=== PATIENT | female | born 1985 | race African-American/Black ===

== ENCOUNTER 2021-05-09 22:10 | Inpatient (IN) | payer OTHER ==
[2021-05-10] MEDS ORDERED: AMPICILLIN - 2 GM in SODIUM CHLORIDE 100 ML IVPB ONE ×2
[2021-05-10 00:06] VITALS: BMI 43.3
[2021-05-10 00:10] LABS: URINE BARBITURATES NEGATIVE (NEGATIVE)
[2021-05-10 00:11] LABS: METHADONE, UR NEGATIVE (NEGATIVE); OPIATES, URI NEGATIVE (NEGATIVE); PHENCYCLIDINE,URINE NEGATIVE (NEGATIVE); URINE BENZODIAZEPINES NEGATIVE (NEGATIVE)
[2021-05-10 00:14] LABS: COCAINE, UR NEGATIVE (NEGATIVE); URINE AMPHETAMINES NEGATIVE (NEGATIVE)
[2021-05-10] MEDS ORDERED: AMPICILLIN SODIUM 2 GM VIAL ONE (00:27)
[2021-05-10 00:48] LABS: EPI CELLS 8 /uL (0-25.1); HYALINE CASTS 1 /uL (0-3.1); PH,URINE 6.5 (5.0-8.0); URINE APPEARANCE CLEAR; URINE BACTERIA 7 /uL (0-1359); URINE BILIRUBIN NEGATIVE (NEGATIVE); URINE COLOR YELLOW; URINE GLUCOSE (UA) NEGATIVE (NEGATIVE); URINE KETONE NEGATIVE (NEGATIVE); URINE LEUK ESTERASE TRACE (NEGATIVE); URINE NITRITE NEGATIVE (NEGATIVE); URINE PROTEIN NEGATIVE (NEGATIVE); URINE RBC 15 /uL (0-23.9); URINE WBC 11 /uL (0-25.8)
[2021-05-10 01:09] LABS: BASO % 0.1 % (0-2.0); EOS % 1.2 % (0-4.5); HEMATOCRIT 34.2 % (32.4-45.2); HEMOGLOBIN 11.5 GM/dL (10.7-15.3); LYMPH % 18.2 % (8-40); MCH 29.1 pg (25.7-33.7); MCHC 33.8 g/dl (32.0-36.0); MEAN CELL VOLUME 86.2 fl (80-96); MEAN PLT VOLUME 9.2 fl (7.5-11.1); MONO % 5.2 % (3.8-10.2); NEUT % 75.3 % (42.8-82.8); PLATELET COUNT 230 10^3/uL (134-434); RBC 3.96 M/mm3 (3.60-5.2); RDW 14.9 % (11.6-15.6); WHITE BLOOD COUNT 7.6 K/mm3 (4.0-10.0)
[2021-05-10 01:17] LABS: INR 0.9 (0.83-1.09); PROTHROMBIN TIME (PATIENT) 11.1 SEC (9.7-13.0)
[2021-05-10 01:20] LABS: ACTIVATED PTT 28.1 SECONDS (25.2-36.5)
[2021-05-10 01:27] LABS: CALCIUM 8.8 mg/dL (8.5-10.1)
[2021-05-10 01:28] LABS: ALBUMIN 2.4 g/dl (3.4-5.0); BLOOD UREA NITROGEN 5.7 mg/dL (7-18)
[2021-05-10 01:31] LABS: CREATININE 0.6 mg/dL (0.55-1.3)
[2021-05-10 01:32] LABS: BILIRUBIN,TOTAL 0.3 mg/dL (0.2-1)
[2021-05-10 01:33] LABS: TOT PROT 6.9 g/dl (6.4-8.2)
[2021-05-10 01:55] LABS: SYPHILIS W/ RPR CONF NON-REACTIVE (NONREACTIVE)
[2021-05-10 02:30] LABS: HIV INTERPRETATION NEGATIVE (NEGATIVE)
[2021-05-10] MEDS: AMPICILLIN - 1 GM in SODIUM CHLORIDE 100 ML IVPB SCH ×6 (04:00→20:17)
[2021-05-10] MEDS ORDERED: AMPICILLIN SODIUM 1 GM VIAL ONE ×4 (04:35→15:41)
[2021-05-10] MEDS: DEXTROSE 5%-LACTATED RINGERS 1,000 ML IV SCH ×2 (05:45)
[2021-05-10] MEDS ORDERED: OXYTOCIN 30 UNITS in 0.9% NS 30 UNIT/500 ML INFUS.BAG IVPB ONE (09:39)
[2021-05-10] MEDS ORDERED: BUTORPHANOL TARTRATE 1 MG/ML VIAL IVPUSH PRN (09:57)
[2021-05-10] MEDS ORDERED: PROMETHAZINE HCL 25 MG/1 ML VIAL IVPB ONE (09:57)
[2021-05-10] MEDS ORDERED: OXYTOCIN 30 UNITS in 0.9% NS 30 UNIT/500 ML INFUS.BAG IVPB SCH (10:00)
[2021-05-10] MEDS ORDERED: PCA PUMP NR ONE (13:13)
[2021-05-10] MEDS ORDERED: NALOXONE HCL 0.4 MG/ML VIAL IVPUSH PRN (13:25)
[2021-05-10] MEDS ORDERED: FENTANYL/BUPIVACAINE/NS/PF - PCEA - 50 ML DISP.SYRIN EP ONE (13:27)
[2021-05-10] MEDS ORDERED: BUPIVACAINE HCL/PF 0.25% (2.5MG/ML) 10 ML VIAL ONE ×3 (13:29→14:43)
[2021-05-10] MEDS: FENTANYL/BUPIVACAINE/NS/PF - PCEA - 50 ML DISP.SYRIN EP SCH ×2 (13:55→14:45)
[2021-05-10] MEDS ORDERED: ELECTROLYTE-148 SOLN 1,000 ML IV SCH (14:30)
[2021-05-10] MEDS ORDERED: LIDOCAINE HCL 1% PRESERVATIVE FREE - 30ML VIAL ONE (15:22)
[2021-05-10] MEDS ORDERED: OXYTOCIN 20 UNITS in 0.9% NS 20 UNIT/1,000 ML INFUS.BAG IV ONE (15:23)
[2021-05-10] MEDS ORDERED: METHYLERGONOVINE MALEATE 0.2 MG/1 ML AMP IM PRN (16:22)
[2021-05-10] MEDS ORDERED: BENZOCAINE 28 GM HEMORRHOIDAL OINTMENT TP PRN (16:22)
[2021-05-10] MEDS ORDERED: ACETAMINOPHEN 325 MG TABLET (FP) PO PRN (16:22)
[2021-05-10] MEDS ORDERED: BENZOCAINE 20% 57 GM BOTTLE TP PRN (16:22)
[2021-05-10] MEDS ORDERED: BISACODYL 10 MG SUPP.RECT RC PRN (16:22)
[2021-05-10] MEDS ORDERED: WITCH HAZEL 50% (TUCKS) 40 PAD/JAR PAD TP PRN (16:22)
[2021-05-10] MEDS ORDERED: OXYTOCIN 20 UNITS in 0.9% NS 20 UNIT/1,000 ML INFUS.BAG IV SCH (16:30)
[2021-05-10 16:40] LABS: CORD BASE EXCESS -7.4 mmol/L (0-2); CORD HCO3 21.9 mmHg (20-29); CORD PCO2 59.8 mmHg (30-78); CORD pH 7.181 (7.14-7.44)
[2021-05-10 16:41] LABS: CORD HCO3 22.3 mmHg (20-29); CORD pH 7.114 (7.14-7.44)
[2021-05-10] MEDS: FERROUS SO4 325 MG TABLET (FP) PO SCH (21:59)
[2021-05-10] MEDS: IBUPROFEN 600 MG TABLET (FP) PO PRN (22:59)
[2021-05-11 08:05] LABS: BASO % 0.2 % (0-2.0); EOS % 0.9 % (0-4.5); HEMATOCRIT 33.4 % (32.4-45.2); HEMOGLOBIN 11.3 GM/dL (10.7-15.3); LYMPH % 15.8 % (8-40); MCH 29.6 pg (25.7-33.7); MCHC 33.9 g/dl (32.0-36.0); MEAN CELL VOLUME 87.3 fl (80-96); MEAN PLT VOLUME 9.5 fl (7.5-11.1); MONO % 5.6 % (3.8-10.2); NEUT % 77.5 % (42.8-82.8); PLATELET COUNT 207 10^3/uL (134-434); RBC 3.83 M/mm3 (3.60-5.2); RDW 15.4 % (11.6-15.6); WHITE BLOOD COUNT 8.9 K/mm3 (4.0-10.0)
[2021-05-11] MEDS: IBUPROFEN 600 MG TABLET (FP) PO PRN ×2 (09:07→15:56)
[2021-05-11] MEDS: FERROUS SO4 325 MG TABLET (FP) PO SCH ×2 (09:09→21:13)
[2021-05-11] MEDS: PRENATAL VITAMINS W/ FOLIC ACID TABLET (FP) PO SCH (09:09)
[2021-05-11] MEDS ORDERED: SENNOSIDES/DOCUSATE COMBO (SENNA PLUS) TABLET (UD) PO PRN (22:00)
[2021-05-12] MEDS: PRENATAL VITAMINS W/ FOLIC ACID TABLET (FP) PO SCH (09:09)
[2021-05-12] MEDS: FERROUS SO4 325 MG TABLET (FP) PO SCH (09:09)
[2021-05-12 10:02] VITALS: BP 111/78; PULSE 84; TEMP 98
[2021-05-12 10:30] LABS: POC NITRAZINE POS
== END 2021-05-12 11:45 | disposition home or self-care (01) | DRG 560 ==
LOC: JDEL 22:10 → JLDR 23:05 → J3W 05-10 19:38
PROVIDERS: ADMIT Obstetrics & Gynecology; ATTEND Obstetrics & Gynecology
PROC: 10E0XZZ Delivery of Products of Conception, External Approach (ICD-10-PCS; principal; 2021-05-10)
DX: O42.02 Full-term premature rupture of membranes, onset of labor within 24 hours of rupture (principal); O34.219 Maternal care for unspecified type scar from previous cesarean delivery; Z37.0 Single live birth; O99.214 Obesity complicating childbirth; E66.01 Morbid (severe) obesity due to excess calories; Z3A.40 40 weeks gestation of pregnancy
CPT/HCPCS: 36415; 36600; 59409; 80053; 80307; 81003; 82803; 83986-QW; 85025; 85610; 85730; 86762; 86780; 86850; 86900; 86901; 87340; 87389; C9803; U0003; U0005